=== PATIENT | male | born 1975 | race African-American/Black ===

== ENCOUNTER → 2024-10-21 | Outpatient (CLI) | payer BC, SELFPAY ==
[2024-10-21 16:47] LABS: Basophils % (Auto) 1 % (0-2.5); Eosinophils # (Auto) 0.1 Thou/mm3 (0.0-0.5); Eosinophils % (Auto) 1 % (0-10); Hematocrit 40.2 % (41.0-53.0); Hemoglobin 13.5 g/dL (13.5-16.0); Immature Granulocytes % (Auto) 0 % (0-0); Immature Granulocytes Auto 0.01 Thou/mm3 (0.00-0.00); Lymphocytes # (Auto) 1.8 Thou/mm3 (1.0-4.8); Lymphocytes % (Auto) 31 % (10-50); Mean Corpuscular HGB Conc 33.6 g/dl (31.0-37.0); Mean Corpuscular Hemoglobin 29.2 pg (25.0-35.0); Mean Corpuscular Volume 87 fL (80-100); Monocytes # (Auto) 0.6 Thou/mm3 (0.0-0.8); Monocytes % (Auto) 9 % (0-12); Neutrophils # (Auto) 3.4 Thou/mm3 (1.8-7.7); Neutrophils % (Auto) 58 % (37-80); Nucleated Red Blood Cell % 0 /100 WBC (0); Platelet Count 323 Thou/mm3 (140-440); RDW Standard Deviation 39.8 fL (35.1-43.9); Red Blood Count 4.63 Miln/mm3 (4.50-5.90); White Blood Count 5.8 Thou/mm3 (3.8-10.6)
[2024-10-21 17:02] LABS: Glucose Estimated Average 143 mg/dL (80-131); Hemoglobin A1C 6.6 % Hgb (4.8-6.0)
[2024-10-21 17:12] LABS: Alanine Aminotransferase 38 U/L (10-49); Albumin, Serum 4.5 gm/dL (3.5-5.0); Albumin/Globulin Ratio 1.5 (1.2-2.2); Alkaline Phosphatase 78 U/L (46-116); Anion Gap 8 (7-16); Aspartate Amino Transferase 33 U/L (0-34); BUN/Creatinine Ratio 9 Ratio (12-20); Bilirubin,Total 0.9 mg/dL (0.3-1.2); Blood Urea Nitrogen 10 mg/dL (9-23); Calcium 8.9 mg/dL (8.3-10.6); Calcium (Corrected) 8.9 mg/dL (8.5-10.1); Carbon Dioxide 28.8 mMol/L (20.0-31.0); Cardiac Risk Estimate 4.7 RATIO (4.0-6.7); Chloride 102 mMol/L (98-107); Cholesterol 198 mg/dL (132-200); Creatinine (Component) 1.1 mg/dL (0.6-1.3); Globulin 3.1 gm/dL (2.3-3.5); Glucose 105 mg/dL (74-106); HDL Cholesterol 42 mg/dL (40-60); LDL Cholesterol,Calculated 139 mg/dL (0-130); Osmolality,Calculated 276 (275-295); Potassium 4.1 mMol/L (3.4-5.1); Sodium 139 mMol/L (136-145); Total Protein 7.6 gm/dL (5.7-8.2); Triglycerides 87 mg/dL (30-150); eGFR > 60 See Note
== END | disposition home or self-care (01) ==
PROVIDERS: PCP Family Medicine; Referring Provider Family Medicine; Visit Provider Family Medicine
DX: E11.65 Type 2 diabetes mellitus with hyperglycemia (principal); Z13.220 Encounter for screening for lipoid disorders
CPT/HCPCS: 36415; 80053; 80061; 83036; 85025

== ENCOUNTER 2025-05-26 14:11 | Emergency (ER) | payer BC, OTHER, SELFPAY ==
[2025-05-26 14:14] VITALS: BP 171/107; PULSE 77; RESP 18; TEMP 36.7; O2SAT 97; BMI 34.8
--- NOTE | 2025-05-26 14:39 | XR_ITS ---
Examination: CT brain head without contrast. 2-D sagittal coronal reconstructions Date and time of exam: 05/26/2025 at 4:05 p.m. CTDI: vol (mGy): 54.8 DLP: (mGycm): 1142 CLINICAL HISTORY: Neck pain after traumatic fall today Technique: Multiple CT axial sections of the brain have been obtained, 5 mm slice thickness. Contrast has not been administered. 2-D sagittal, coronal reconstructions have been obtained Low dose protocols were performed. One or more of the following dose reduction techniques were used; automated exposure control, adjustment of the mA and/or KV according to patient size, use of iterative reconstruction technique. Findings: No significant ventricular enlargement. Intra-axial or extra-axial hemorrhage density is not seen. No mass effect or midline shift Basal cisterns are not remarkable. Fourth ventricle is midline. Cranial vault intact. Impression: Negative for acute hemorrhage, mass effect or midline shift. 2. All visible bones in including the facial bones calvarium are entirely normal. Study is negative for trauma
--- NOTE | 2025-05-26 14:39 | XR_ITS ---
Examination: CTA chest, with intravenous contrast. CTA abdomen, with intravenous contrast. CTA pelvis, with intravenous contrast. 2-D sagittal and coronal reconstructions. 3-D reconstructions. Date and time of exam: 05/26/2025 at 408 the CTDI vol (mgy) 57.9 DLP (MGycm) 3149 CLINICAL HISTORY: Patient complains of upper chest and lower pelvic pain after traumatic fall Technique: Multiple CTA images, 2.0 mm slice thickness, obtained chest, abdomen, pelvis, with the high-resolution 64 slice scanner. 100 mL is administered intravenously. Sagittal and coronal 2-D reconstructions are obtained. 3-D reconstructions, angiographic images are obtained. 3-D postprocessing, including vascular maximum intensity projections. Low dose protocols were performed. One or more of the following dose reduction techniques were used; automated exposure control, adjustment of the mA and/or KV according to patient size, use of iterative reconstruction technique. Findings: There is excellent opacification and visualization of all of the major arteries identified, in the lower half of the neck, chest abdomen and pelvis. All of these arteries appear radiographically normal the pulmonary arteries and their peripheral branches in both sides in the chest appear normal All of the major branches off the abdominal aorta are well seen and appear normal, as do the renal arteries bilaterally. The arteries in the pelvis and right and left groin likewise appear perfectly normal. All visible bones in the chest spine abdomen and pelvis have a normal radiographic appearance. The CT appearance of the liver spleen pancreas adrenal glands and kidneys are all normal. No retroperitoneal abnormalities are identified, and the loops of small bowel and colon appear normal. No abnormalities are seen in the pelvis with the exception of moderate enlargement of the prostate gland measuring 4.2 cm IMPRESSION: 1. There is excellent opacification of visualization of all of the major arteries seen on this study, extending from the lower neck through the chest abdomen and pelvis down to the groin regions bilaterally. 2. There is mild-moderate enlargement of the prostate gland in the pelvis. 3. In all other respects, the anatomy and the chest abdomen and pelvis is entirely normal
--- NOTE | 2025-05-26 14:39 | XR_ITS ---
Examination: CT cervical spine without contrast 2-D sagittal reconstructions 2-D coronal reconstructions 3-D reconstructions. Exam date and time: May 26, 2025, 1606 hours INDICATIONS: Ground-level fall today with injury to the neck, neck pain CTDI:vol (mGy) 18.2 DLP: (mGycm) 510 Technique: Multiple 2 mm axial sections of the cervical spine have been obtained. The coronal and sagittal reconstructions have been obtained. 3-D reconstructions have been obtained. Low dose protocols were performed. One or more of the following dose reduction techniques were used; automated exposure control, adjustment of the mA and/or KV according to patient size, use of iterative reconstruction technique. Findings: Axial sections demonstrate intact base of the skull. C1 exhibit satisfactory relationship to the odontoid. No acute cervical vertebral body fracture seen. Alignment posterior spinous processes satisfactory. Impression: No acute cervical fracture.
--- NOTE | 2025-05-26 14:41 | EKG_ITS ---
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
--- NOTE | 2025-05-26 14:41 | XR_ITS ---
EXAMINATION: AP chest single view TECHNIQUE: AP portable semiupright chest single view Date and time: May 26, 2025, 1453 hours INDICATION: Patient fell today with injury to the chest, chest pain FINDINGS: Normal heart size No pneumothorax. Clavicles ribs appear intact IMPRESSION: No pneumothorax pulmonary contusion or hemothorax
[2025-05-26 15:24] VITALS: BP 142/90; PULSE 65; PULSE 71; RESP 18; O2SAT 97
[2025-05-26 15:39] LABS: Collection Type, Urine Clean Catch; Squamous Epithelial Cell,Urine 0 /hpf (0-5)
[2025-05-26 15:41] LABS: Basophils # (Auto) 0.0 Thou/mm3 (0.0-0.2); Basophils % (Auto) 1 % (0-2.5); Eosinophils # (Auto) 0.1 Thou/mm3 (0.0-0.5); Eosinophils % (Auto) 1 % (0-10); Hematocrit 38.8 % (41.0-53.0); Hemoglobin 13.1 g/dL (13.5-16.0); Immature Granulocytes Auto 0.02 Thou/mm3 (0.00-0.00); Lymphocytes # (Auto) 1.2 Thou/mm3 (1.0-4.8); Lymphocytes % (Auto) 19 % (10-50); Mean Corpuscular HGB Conc 33.8 g/dl (31.0-37.0); Mean Corpuscular Hemoglobin 28.6 pg (25.0-35.0); Mean Corpuscular Volume 85 fL (80-100); Monocytes # (Auto) 0.5 Thou/mm3 (0.0-0.8); Monocytes % (Auto) 8 % (0-12); Neutrophils # (Auto) 4.7 Thou/mm3 (1.8-7.7); Neutrophils % (Auto) 72 % (37-80); Nucleated Red Blood Cell # 0.00 Thou/mm3 (0.00-0.00); Nucleated Red Blood Cell % 0 /100 WBC (0); Platelet Count 285 Thou/mm3 (140-440); RDW Standard Deviation 40.1 fL (35.1-43.9); Red Blood Count 4.58 Miln/mm3 (4.50-5.90); White Blood Count 6.5 Thou/mm3 (3.8-10.6)
[2025-05-26 15:50] LABS: INR 1.0 (0.9-1.3); Partial Thromboplastin Time 26.4 Seconds (22.0-36.0); Prothrombin Time 10.9 Seconds (9.0-12.2)
[2025-05-26 15:54] LABS: Alanine Aminotransferase 49 U/L (10-49); Albumin, Serum 4.3 gm/dL (3.5-5.0); Albumin/Globulin Ratio 1.3 (1.2-2.2); Alkaline Phosphatase 82 U/L (46-116); Anion Gap 9 (7-16); Aspartate Amino Transferase 40 U/L (0-34); BUN/Creatinine Ratio 10 Ratio (12-20); Bilirubin,Total 0.5 mg/dL (0.3-1.2); Blood Urea Nitrogen 11 mg/dL (9-23); Calcium 9.8 mg/dL (8.3-10.6); Calcium (Corrected) 9.8 mg/dL (8.5-10.1); Carbon Dioxide 28.1 mMol/L (20.0-31.0); Chloride 104 mMol/L (98-107); Creatinine (Component) 1.1 mg/dL (0.6-1.3); Estimated Creatinine Clearance 105.2 mL/min (>60); Globulin 3.4 gm/dL (2.3-3.5); Glucose 143 mg/dL (74-106); Osmolality,Calculated 282 (275-295); Potassium 3.7 mMol/L (3.4-5.1); Sodium 141 mMol/L (136-145); Total Protein 7.7 gm/dL (5.7-8.2); Troponin I < 0.020 ng/mL (0.0-0.045); eGFR > 60 See Note
[2025-05-26 16:04] LABS: Bacteria,Urine Rare; Bilirubin,Urine Negative (Negative); Blood,Urine Negative (Negative); Clarity,Urine Clear (Clear/Hazy); Color,Urine Lt-Yellow (Lt Yel-Yel); Glucose, Urine Negative (Negative); Ketones,Urine Negative (Negative); Leukocyte Esterase,Urine Negative (Negative); Nitrite,Urine Negative (Negative); PH,Urine 7.0 (5.0-7.0); Protein,Urine Trace (Neg - Trace); RBC,Urine 4 /hpf (0-3); Specific Gravity,Urine 1.023 (1.001-1.035); Urobilinogen,Urine Negative mg/dL (0.0-1.0); WBC,Urine 1 /hpf (0-5)
[2025-05-26] MEDS: SODIUM CHLORIDE 0.9% 1000 ML 1,000 ML 999 ML IV (16:27)
--- NOTE | 2025-05-26 16:31 | EDNOTE_ITS ---
ED Fall Injury RME/HPI General Chief Complaint: Fall Stated Complaint: FALL Time Seen by Provider: 05/26/25 14:29 Arrival date/time: 05/26/25 14:11 Limitations: no limitations RME / HPI RME / HPI Narrative: 49 year old male with no stated medical history presents to the ED BIBA from home for evaluation after fall today. Patient states he was in the attic when he fell through to the kitchen, landing on the floor. No LOC reported. Per medics, the patient was able to stand and ambulatory on scene. In the ED, patient complains of right shoulder pain. No other complaints reported. Related Data Allergies Allergy/AdvReac Type Severity Reaction Status Date / Time No Known Allergies Allergy Verified 05/26/25 15:26 Review of Systems Review of Systems Systems Reviewed: All systems reviewed, normal except as documented Past Medical History Past Medical History CARDIAC: Negative Cardiac Disorders or Congestive Heart Failure RESPIRATORY: Negative Chronic Obstructive Pulmonary Disease (COPD) or Asthma GENITOURINARY: Negative Renal Disease ENDOCRINE: Negative Diabetes Mellitus Type 1 or Diabetes Mellitus Type 2 HEMATOLOGIC: Negative Sickle Cell Disease Social History SMOKING STATUS: Never smoker ED Exam General Limitations: Present no limitations General appearance: Present alert and in no apparent distress Head Head exam: Present atraumatic, normocephalic and normal inspection Eye Eye exam: Present normal appearance, PERRL and EOMI ENT ENT exam: Present normal exam, normal oropharynx and mucous membranes moist Neck Neck exam: Present normal inspection, full ROM and trachea midline Chest Chest inspection: Present normal inspection and symmetric chest wall rise Respiratory Respiratory exam: Present normal lung sounds bilaterally Cardiovascular Cardiovascular exam: Present regular rate, normal rhythm and normal heart sounds Abdominal Exam Abdominal exam: Present soft and normal bowel sounds Extremities Exam Extremities exam: Present other (Right shoulder with limited ROM secondary to pain, no obvious deformity ) Back Exam Back exam: Present normal inspection and full ROM Neurological Exam Neurological exam: Present alert, oriented X3 and CN II-XII intact Psychiatric Psychiatric exam: Present normal affect and normal mood Skin Skin exam: Present warm, dry, intact and normal color Course Quality Measures none Orders Category Date Time Status CT Screening NOW Care 05/26/25 14:43 Completed Manager Nicu NOW Care 05/26/25 14:41 Completed Continuous Pulse Oximetry NOW Care 05/26/25 14:41 Completed EKG (ED ONLY) *Do not use* NOW Care 05/26/25 14:41 Completed Insert IV NOW Care 05/26/25 14:[address] angio chest abdomen pelvis Stat Exams 05/26/25 14:[address] cervical spine wo con Stat Exams 05/26/25 14:[address] head/brain wo con Stat Exams 05/26/25 14:39 Completed EKG (ED Only) Stat Exams 05/26/25 14:41 Draft XR chest 1V portable Stat Exams 05/26/25 14:41 Completed CBC Stat Lab 05/26/25 15:08 Completed Comprehensive Metabolic Panel Stat Lab 05/26/25 15:08 Completed Partial Thromboplastin Time Stat Lab 05/26/25 15:08 Completed Prothrombin Time with INR Stat Lab 05/26/25 15:08 Completed Troponin I Stat Lab 05/26/25 15:08 Completed Urinalysis Stat Lab 05/26/25 15:38 Completed Sodium Chloride 0.9% 1000 ml [Ns] 1,000 ml Med 05/26/25 14:39 Discontinued IV 999 mls/hr Vital Signs Vital signs: Vital Signs Temperature 98.0 F 05/26/25 14:14 Pulse Rate 77 05/26/25 14:14 Respiratory Rate 18 05/26/25 14:14 Blood Pressure 171/107 H 05/26/25 14:14 Pulse Oximetry (%) 97 05/26/25 14:14 Oxygen Delivery Method Room Air 05/26/25 14:14 Pulse ox is 97% on room air which is adequate. Fall MDM Narrative MDM Narrative:: Rasheeda Bunn am scribing for and in the presence of Dr. Salazar. Patient data External records reviewed:: [facility] previous records and EMS form Clinical information provided by:: patient and EMS Social determinants that could affect healthcare access:: none Patient has the following chronic illnesses:: None reported How is presenting disease/condition affected by chronic disease/condition?: no chronic disease Evaluation data The following diagnostics were reviewed and interpreted by me:: lab results, radiology exam(s) and EKG tracing(s) (EKG @ 14:50, interpreted by me, sinus bradycardia, rate 59, no STEMI. ) Lab and/or radiology exams considered but not ordered:: None Interpretation Summary: Ordering Physician: Claudio Salazar MD Date of Service: 05/26/25 Procedure(s): CT cervical spine wo con Accession Number(s): [id number] cc: Claudio Salazar MD; Cleveland Martin MD; NO PRIMARY/FAMILY,PHYSICIAN~ Examination: CT cervical spine without contrast 2-D sagittal reconstructions 2-D coronal reconstructions 3-D reconstructions. Exam date and time: May 26, 2025, 1606 hours INDICATIONS: Ground-level fall today with injury to the neck, neck pain CTDI:vol (mGy) 18.2 DLP: (mGycm) 510 Technique: Multiple 2 mm axial sections of the cervical spine have been obtained. The coronal and sagittal reconstructions have been obtained. 3-D reconstructions have been obtained. Low dose protocols were performed. One or more of the following dose reduction techniques were used; automated exposure control, adjustment of the mA and/or KV according to patient size, use of iterative reconstruction technique. Findings: Axial sections demonstrate intact base of the skull. C1 exhibit satisfactory relationship to the odontoid. No acute cervical vertebral body fracture seen. Alignment posterior spinous processes satisfactory. Impression: No acute cervical fracture. Dictated By: Cleveland Martin MD Signed By: <Electronically signed by Cleveland Martin MD in OV> 05/26/25 1635 Ordering Physician: Cluadio Salazar MD Date of Service: 05/26/25 Procedure(s): CT angio chest abdomen pelvis Accession Number(s): [id number] cc: Claudio Salazar MD; Cleveland Tran MD; NO PRIMARY/FAMILY,PHYSICIAN~ Examination: CTA chest, with intravenous contrast. CTA abdomen, with intravenous contrast. CTA pelvis, with intravenous contrast. 2-D sagittal and coronal reconstructions. 3-D reconstructions. Date and time of exam: 05/26/2025 at 408 the CTDI vol (mgy) 57.9 DLP (MGycm) 3149 CLINICAL HISTORY: Patient complains of upper chest and lower pelvic pain after traumatic fall Technique: Multiple CTA images, 2.0 mm slice thickness, obtained chest, abdomen, pelvis, with the high-resolution 64 slice scanner. 100 mL is administered intravenously. Sagittal and coronal 2-D reconstructions are obtained. 3-D reconstructions, angiographic images are obtained. 3-D postprocessing, including vascular maximum intensity projections. Low dose protocols were performed. One or more of the following dose reduction techniques were used; automated exposure control, adjustment of the mA and/or KV according to patient size, use of iterative reconstruction technique. Findings: There is excellent opacification and visualization of all of the major arteries identified, in the lower half of the neck, chest abdomen and pelvis. All of these arteries appear radiographically normal the pulmonary arteries and their peripheral branches in both sides in the chest appear normal All of the major branches off the abdominal aorta are well seen and appear normal, as do the renal arteries bilaterally. The arteries in the pelvis and right and left groin likewise appear perfectly normal. All visible bones in the chest spine abdomen and pelvis have a normal radiographic appearance. The CT appearance of the liver spleen pancreas adrenal glands and kidneys are all normal. No retroperitoneal abnormalities are identified, and the loops of small bowel and colon appear normal. No abnormalities are seen in the pelvis with the exception of moderate enlargement of the prostate gland measuring 4.2 cm IMPRESSION: 1. There is excellent opacification of visualization of all of the major arteries seen on this study, extending from the lower neck through the chest abdomen and pelvis down to the groin regions bilaterally. 2. There is mild-moderate enlargement of the prostate gland in the pelvis. 3. In all other respects, the anatomy and the chest abdomen and pelvis is entirely normal Dictated By: Cleveland Tran MD Signed By: <Electronically signed by Cleveland Tran MD in OV> 05/26/25 3937 Ordering Physician: Claudio Salazar MD Date of Service: 05/26/25 Procedure(s): CT head/brain wo con Accession Number(s): [id number] cc: Claudio Salazar MD; Cleveland Tran MD; NO PRIMARY/FAMILY,PHYSICIAN~ Examination: CT brain head without contrast. 2-D sagittal coronal reconstructions Date and time of exam: 05/26/2025 at 4:05 p.m. CTDI: vol (mGy): 54.8 DLP: (mGycm): 1142 CLINICAL HISTORY: Neck pain after traumatic fall today Technique: Multiple CT axial sections of the brain have been obtained, 5 mm slice thickness. Contrast has not been administered. 2-D sagittal, coronal reconstructions have been obtained Low dose protocols were performed. One or more of the following dose reduction techniques were used; automated exposure control, adjustment of the mA and/or KV according to patient size, use of iterative reconstruction technique. Findings: No significant ventricular enlargement. Intra-axial or extra-axial hemorrhage density is not seen. No mass effect or midline shift Basal cisterns are not remarkable. Fourth ventricle is midline. Cranial vault intact. Impression: Negative for acute hemorrhage, mass effect or midline shift. 2. All visible bones in including the facial bones calvarium are entirely normal. Study is negative for trauma Dictated By: Cleveland Tran MD Signed By: <Electronically signed by Cleveland Tran MD in OV> 05/26/25 1631 Ordering Physician: Claudio Salazar MD Date of Service: 05/26/25 Procedure(s): XR chest 1V portable Accession Number(s): [id number] cc: Claudio Salazar MD; Cleveland Martin MD~ EXAMINATION: AP chest single view TECHNIQUE: AP portable semiupright chest single view Date and time: May 26, 2025, 1453 hours INDICATION: Patient fell today with injury to the chest, chest pain FINDINGS: Normal heart size No pneumothorax. Clavicles ribs appear intact IMPRESSION: No pneumothorax pulmonary contusion or hemothorax Dictated By: Cleveland Martin MD Signed By: <Electronically signed by Cleveland Martin MD in OV> 05/26/25 1508 Medications / Prescriptions Medications or Prescriptions considered but not ordered:: None Medication administrations:: Medication Administration History Discontinued Medications Sodium Chloride (Ns) 1,000 mls @ 999 mls/hr IV .Q1H1M ONE Stop: 05/26/25 15:39 Last Infusion: 05/26/25 17:28 Dose: Infused Documented By: Admin: 05/26/25 16:27 Dose: 999 mls/hr Documented By: EF See above Consultations Consultation(s) initiated? (list below): No Diagnosis Fall Differential Diagnosis: syncope, fracture of wrist, compression fracture and concussion with loss of consciousness Most likely diagnosis given after review of the tests above:: Contusion of multiple sites Fall Admission Indicated Admission indicated?: not indicated Admission Request Was there a request for admission?: No Disposition Plan Disposition Plan: Discharge Discharge Attestation Discharge Attestation: The patient and all family members were given an opportunity to ask questions and understood the discharge instructions. Discharge instructions specifically effects, indications for sooner follow up or return to the emergency department, and the expected course of current diagnosis. Patient condition: Stable Discharge Plan Plan Patient Disposition: HOME (Self Care) Patient condition on transfer: Stable Prescriptions/Referrals Referrals: No Primary/Family,Physician [Primary Care Provider] - In 1 week Problem List Clinical Impression: Contusion of multiple sites, Fall Patient/Caregiver Discharge Instructions Discharge Activity: activity as tolerated Education Materials: Treating?Strains and Sprains, ED Fall with Uncertain Cause Additional Instructions: Follow-up with your doctor in 2 to 3 days. Take Tylenol 500 mg 1-2 tabs every 6 hours and Advil gelcaps 200 mg 2 gelcaps every 6 hours as needed for pain. Print Language: Estonian Stand Alone Forms: [place] Award Info., Patient Portal Info Letter
[2025-05-26 17:39] VITALS: BP 138/80; PULSE 62; RESP 15; O2SAT 100
== END 2025-05-26 17:46 | disposition home or self-care (01) ==
PROVIDERS: Emergency Provider Family Medicine
DX: S20.219A Contusion of unspecified front wall of thorax, initial encounter (principal); S00.93XA Contusion of unspecified part of head, initial encounter; S10.93XA Contusion of unspecified part of neck, initial encounter; S30.11XA Contusion of abdominal wall, initial encounter; S30.0XXA Contusion of lower back and pelvis, initial encounter; R00.1 Bradycardia, unspecified; W13.3XXA Fall through floor, initial encounter; Y93.89 Activity, other specified; Y92.000 Kitchen of unspecified non-institutional (private) residence as the place of occurrence of the external cause
CPT/HCPCS: 36415; 70450; 71045; 71275; 72125; 74174; 80053; 81001; 84484; 85025; 85610; 85730; 93005; 96360; 96361; 99284; A4649; J7030; Q9967